=== PATIENT | male | born 1945 | race Caucasian/White ===

== ENCOUNTER → 2017-11-11 | Outpatient (CLI) | payer OTHER | END | disposition home or self-care (01) | DX: M16.11 Unilateral primary osteoarthritis, right hip (principal); R26.2 Difficulty in walking, not elsewhere classified; M25.551 Pain in right hip; M25.651 Stiffness of right hip, not elsewhere classified; M62.81 Muscle weakness (generalized); Z74.1 Need for assistance with personal care | CPT/HCPCS: 97161 GP; 97165 GO; 97530 GP; 97535 GO; G8978 GP; G8979 GP; G8980 GP; G8987 GO; G8988 GO; G8989 GO ==

== ENCOUNTER 2017-12-08 23:02 | Inpatient (IN) | payer OTHER ==
[~2017-12-08] VITALS: Ht 180.3 cm; Wt 87.6 kg
[~2017-12-08 23:02] MED LIST: LITE COAT ASPI325 M1 PO; MULTIPLE VITAM1 EAC1 PO
[2017-12-09 07:22] VITALS: BP 152/87
[2017-12-09 12:20] VITALS: BP 162/89
[2017-12-09 12:36] LABS: HEMATOCRIT 41.1 % (38.0-50.0); HEMOGLOBIN 13.7 G/DL (12.5-16.6); MCH 31.7 PG (29.0-34.0); MCHC 33.3 G/DL (30.0-36.0); MCV 95.1 FL (86-99); PLATELET COUNT 174 K/uL (156-360); RBC DIS.WIDTH-CV 12.9 % (11.8-14.6); RBC DIS.WIDTH-SD 45.3 % (39-53); RED BLOOD COUNT 4.32 M/uL (4.00-5.50); WHITE BLOOD COUNT 5.6 K/uL (4.1-10.2)
[2017-12-09 15:37] VITALS: BP 133/76
[2017-12-09 19:48] VITALS: BP 134/70
[2017-12-09 23:36] VITALS: BP 139/69
[2017-12-10 04:15] VITALS: BP 137/67
[2017-12-10 06:19] LABS: HEMATOCRIT 40.1 % (38.0-50.0); HEMOGLOBIN 13.5 G/DL (12.5-16.6); MCV 94.8 FL (86-99)
[2017-12-10 06:43] LABS: CHLORIDE 104 MEQ/L (99-109); CREATININE 0.9 MG/DL (0.6-1.3); GFR ESTIMATE (CALCULATED) > 59 mL/min/ (58.99-99999); GLUCOSE 129 mg/dL (70-99); POTASSIUM 4.1 MEQ/L (3.7-5.4); SODIUM 137 MEQ/L (136-147); UREA NITROGEN (BUN) 17 mg/dL (9-23)
[2017-12-10] MEDS ORDERED: ENDOCET 5-3251 EACH PO (08:34)
[2017-12-10] MEDS ORDERED: LOVENOX40 MG/0.4 SC (08:34)
[2017-12-10] MEDS ORDERED: HYDROCODON-ACE1 EAC7 PO (08:35)
[2017-12-10 12:15] VITALS: BP 128/68
== END 2017-12-10 16:50 | disposition home health service (06) | DRG 470 ==
LOC: 2SOUTH → ENRESERV 23:02 → 2SOUTH 12-09 06:29 → 3WEST 12-09 12:23 → 2SOUTH 12-09 14:36 → 3WEST 12-10 16:50
PROVIDERS: Orthopaedic Surgery
PROC: 0SR90JA Replacement of Right Hip Joint with Synthetic Substitute, Uncemented, Open Approach (ICD-10-PCS; principal; 2017-12-09)
DX: M16.11 Unilateral primary osteoarthritis, right hip (principal); Z60.2 Problems related to living alone
CPT/HCPCS: 73501; 73522; 80048; 85014; 85018; 85027; J0690; J1650; J2250; J7050